=== PATIENT | male | born 1990 | race Two or more races ===

== ENCOUNTER 2022-01-18 13:36 | Emergency (ER) | payer MEDICAID, OTHER ==
[~2022-01-18] VITALS: Ht 175.3 cm; Wt 90.7 kg
[2022-01-18 13:40] VITALS: BP 150/91
[2022-01-18] MEDS ORDERED: NAPR500T31 PO (15:08)
[2022-01-18] MEDS ORDERED: CEPH500C PO (15:08)
== END 2022-01-18 15:14 | disposition home or self-care (01) ==
LOC: ER 13:36
DX: S63.91XA Sprain of unspecified part of right wrist and hand, initial encounter (principal); W01.0XXA Fall on same level from slipping, tripping and stumbling without subsequent striking against object, initial encounter; Y93.89 Activity, other specified; Y92.89 Other specified places as the place of occurrence of the external cause; Y99.8 Other external cause status
CPT/HCPCS: 73130

== ENCOUNTER 2024-02-26 21:21 | Emergency (ER) | payer MEDICAID ==
[~2024-02-26] VITALS: Ht 172.7 cm; Wt 107.6 kg
[~2024-02-26 21:21] MED LIST: CEPH500C PO; IBUP-1456 PO; NAPR-746 PO
[2024-02-26 22:19] LABS: Basophils # (auto) 0.1 10 ^3/uL (0-0.2); Basophils % (auto) 0.7 % (0.0-2.0); Eosinophils # (auto) 0.4 10 ^3/uL (0-0.8); Eosinophils % (auto) 5.1 % (0.0-7.0); Hematocrit 40.4 % (41.0-53.0); Hemoglobin 13.4 g/dL (13.5-17.5); Lymphocytes # (auto) 1.7 10 ^3/uL (0.4-5.4); Lymphocytes % (auto) 21.6 % (10.0-50.0); Mean Corpuscular Hemoglobin 28.5 pg (28.0-32.0); Mean Corpuscular Hgb Conc. 33.2 g/dL (32.0-36.0); Monocytes # (auto) 0.6 10 ^3/uL (0-1.3); Monocytes % (auto) 7.1 % (0.0-12.0); Neutrophils # (auto) 5.1 10 ^3/uL (1.6-8.6); Neutrophils % (auto) 65.5 % (37.0-80.0); Red Blood Cells 4.69 10^6/uL (4.5-5.90); Red Cell Distribution Width 16.5 % (11.8-14.3); White Blood Cell 7.8 10^3/uL (4.4-10.8)
[2024-02-26 22:42] LABS: Alanine Aminotransferase 170 U/L (7-40); Albumin 5.2 g/dL (3.2-4.8); Alkaline Phosphatase 63 U/L (46-116); Anion Gap 12 (5-15); Aspartate Aminotransferase 109 U/L (13-40); Bilirubin, Total 0.6 mg/dL (0.2-1.0); Blood Urea Nitrogen 15 mg/dL (9-23); Calcium 10.2 mg/dL (8.7-10.4); Carbon Dioxide 19 mmol/L (20-30); Chloride 107 mmol/L (98-107); Glucose 89 mg/dL (74-106); Lipase 37 U/L (12-53); Potassium 3.7 mmol/L (3.5-5.1); Sodium 138 mmol/L (136-145); Total Protein 8.4 g/dL (5.7-8.2)
[2024-02-26 22:56] LABS: Urine Bacteria None Seen /hpf (None Seen)
[2024-02-26 23:06] LABS: Urine Blood 1+ /uL (Negative); Urine Clarity Clear (Clear); Urine Color Yellow (Yellow); Urine Mucus FEW (None Seen); Urine Protein, UAD 1+ (Negative); Urine Specific Gravity 1.028 (1.001-1.035); Urine Urobilinogen Normal (Negative); Urine WBC 1 /hpf (0 - 3)
[2024-02-27] MEDS: KETOROLAC TROMETH 60MG/2ML VIAL IM ONE (00:42)
[2024-02-27 00:46] VITALS: BP 97/150; PULSE 76; RESP 18; TEMP 98.4; O2SAT 95
== END 2024-02-27 00:48 | disposition home or self-care (01) ==
LOC: ER 21:21
DX: I88.0 Nonspecific mesenteric lymphadenitis (principal); I10 Essential (primary) hypertension; Z79.899 Other long term (current) drug therapy
CPT/HCPCS: 36415; 74176; 80053; 81001; 83690; 85025; 96372; 99285; J1885

== ENCOUNTER 2024-12-04 08:35 | Emergency (ER) | payer MEDICAID ==
[~2024-12-04] VITALS: Ht 177.8 cm; Wt 109.6 kg
[2024-12-04 08:58] VITALS: BP 137/99; PULSE 80; RESP 16; TEMP 97.5; O2SAT 97
--- NOTE | 2024-12-04 09:14 | ED.PDOC ---
GI ASSESSMENT HPI Comments A 33 YEAR OLD MALE PRESENTS TO THE ED WITH COMPLAINT OF CONSTIPATION FOR 2X DAYS, WITH MILD EPIGASTRIC DISCOMFORT AND RECTAL PAIN, AND ADDITIONAL ONSET OF MILD BLOOD IN STOOL, LAST NIGHT AND THIS MORNING. PATIENT DENIES FEVER, CHILLS, SHORTNESS OF BREATH, CHEST PAIN, ABDOMINAL PAIN, NAUSEA, VOMITING, HEADACHE, OR OTHER COMPLAINTS. NO OTHER SYMPTOMS OR MODIFYING FACTORS AT THIS TIME. PT IS ALERT, ORIENTATION X4 WITH NORMAL GAIT. Chief Complaint: RECTAL PAIN Time Seen by MD: 09:00 Primary Care Provider: NONE Reviewed Notes: Nurses Notes, Medications, Allergies Allergies: Coded Allergies: No Known Drug Allergy (Verified Allergy, Unknown, 07/01/23) Home Meds Active Scripts Hydrocortisone Base (Anusol-Hc) 2.5 % Cre, 1 APPLIC TOP BID, #30 GRAMS Prov:LASHAUN WHIPPLE 12/04/24 Docusate Sodium (Colace) 100 Mg Cap, 1 CAP PO BID, #30 CAP Prov:LASHAUN WHIPPLE 12/04/24 Ibuprofen (Ibuprofen) 800 Mg Tab, 1 TAB PO TID, #30 TAB Prov:LASHAUN WHIPPLE 03/20/23 Naproxen (Naproxen) 500 Mg Tab, 500 MG PO BID, #30 TAB Prov:LASHAUN WHIPPLE 01/18/22 Cephalexin Monohydrate (Cephalexin) 500 Mg Cap, 500 MG PO QID, #32 CAP Prov:LASHAUN WHIPPLE 01/18/22 Information Source: Patient Mode of Arrival: Ambulatory Timing: Days Duration: Since onset Prehospital treatment: None Quality: Other (epigastric ) Vomitus: None Stool: Blood Streaked, Minimal Severity: Mild, Moderate Recent: None Recent Hx of: Other (see HPI) Pain Location: Epigastric Modifying Factors: Nothing Associated sign and symptoms: Constipation, Abdominal Pain, Blood in Stool, Other (RECTAL PAIN ) Past Medical History PAST MEDICAL HISTORY: HTN, Liver (FATTY LIVER ), Thyroid Past Medical History (Other): OBESITY Surgical History: Denies all surgeries Family History Family History: Reviewed,noncontributory to illness Social History Smoker: Non-Smoker Alcohol: Occasionally Drugs: Denies Drug Use Lives In: Home Constitutional: denies: chills, diaphoresis, fatigue, fever, malaise, sweats, weakness, others EENTM: denies: blurred vision, double vision, ear bleeding, ear discharge, ear drainage, ear pain, ear ringing, eye pain, eye redness, hearing loss, mouth pain, mouth swelling, nasal discharge, nose bleeding, nose congestion, nose pain, photophobia, tearing, throat pain, throat swelling, voice changes, others Respiratory: denies: cough, hemoptysis, orthopnea, SOB at rest, shortness of breath, SOB with excertion, stridor, wheezing, others Cardiovascular: denies: chest pain, dizzy spells, diaphoresis, Dyspnea on exertion, edema, irregular heart beat, left arm pain, lightheadedness, palpitations, PND, syncope, others Gastrointestinal: reports: blood streaked bowels, constipated, rectal pain; denies: abdomen distended, diarrhea, dysphagia, difficulty swallowing, hematemesis, melena, nausea, poor appetite, poor fluid intake, rectal bleeding, vomiting, others Genitourinary: reports: pain (RECTAL ); denies: burning, dysuria, flank pain, frequency, hematuria, incontinence, penile discharge, penile sore, testicle pain, testicle swelling, urgency, others Neurological: denies: dizziness, fainting, headache, left sided numbness, left sided weakness, numbness, paresthesia, pre-existing deficit, right sided numbness, right sided weakness, seizure, speech problems, tingling, tremors, weakness, others Musculoskeletal: denies: back pain, gout, joint pain, joint swelling, muscle pain, muscle stiffness, neck pain, others Integumetry: denies: bruises, change in color, change in hair/nails, dryness, laceration, lesions, lumps, rash, wounds, others Allergic/Immunocompromised: denies: Difficulty Healing, Frequent Infections, Hives, Itching, others Hematologic/Lymphatic: denies: anemia, blood clots, easy bleeding, easy bruising, swollen glands, others Endocrine: denies: excessive hunger, excessive sweating, excessive thirst, excessive urination, flushing, intolerance to cold, intolerance to heat, unexplained weight gain, unexplained weight loss, others Psychiatric: denies: anxiety, bipolar disorder, depression, hopeless, panic disorder, schizophrenia, sleepless, suicidal, others All Other Systems: Reviewed and Negative (Comprehensive review of systems are negative unless otherwise stated in HPI or above ) Physical Exam General Appearance: No Apparent Distress, Obese HEENT: Normal ENT Inspection, PERRL/EOMI, Pharynx Normal, TMs Normal Neck: Full Range of Motion, Non-Tender, Normal, Normal Inspection Respiratory: Chest Non-Tender, Lungs Clear, No Accessory Muscle Use, No Respiratory Distress, Normal Breath Sounds Cardiovascular: No Edema, No JVD, No Murmur, No Gallop, Normal Peripheral Pulses, Regular Rate/Rhythm Breast Exam: Deferred Gastrointestinal: No Organomegaly, No Pulsatile Mass, Normal Bowel Sounds, Soft, Tenderness (MILD TENDERNESS EPIGASTRIC, NO GUARDING AND REBOUND TENDERNESS. ) Genitalia: Deferred Pelvic: Deferred Rectal: Heme negative stool, Normal rectal tone, Tenderness (RECTAL REGION WITH A FISSURE, NO RECTAL BLEEDING AND BLOOD CLOTS. ) Extremities: No calf tenderness, Normal capillary refill, Normal inspection, Normal range of motion, Non-tender, No pedal edema Musculoskeletal : Apperance: Normal Neurologic: Alert, licensed pesticide applicator II-XII nml as Tested, No Motor Deficits, Normal Affect, Normal Mood, No Sensory Deficits Cerebellar Function: Normal Reflexes: Normal Skin: Dry, Normal Color, Warm Peripheral Pulses: 2+ carotid (R), 2+ carotid (L) Lymphatic: No Adenopathy Was a procedure done? Was a procedure done?: No GI differential Dx Differential Diagnosis: Constipation, Gastritis/PUD, Gastroenteritis, Inflammatory BD, Viral, Other (LOWER GI BLEED, HEMORRHOIDS, FISSURE) X-Ray, Labs, Meds, VS Vital Signs Date Time Temp Pulse Resp B/P (MAP) Pulse Ox O2 Delivery O2 Flow Rate FiO2 12/04/24 08:58 97.5 80 16 137/99 (112) 97 97.5 12/04/24 08:58 80 16 97 Room Air 12/04/24 08:45 97.5 80 16 137/99 (112) 97 97.5 Lab Test 12/04/24 09:07 Range/Units White Blood Count 6.0 4.4-10.8 10^3/uL Red Blood Count 4.99 4.5-5.90 10^6/uL Hemoglobin 15.1 13.5-17.5 g/dL Hematocrit 45.9 41.0-53.0 % Mean Corpuscular Volume 92.0 80.0-100.0 fL Mean Corpuscular Hemoglobin 30.3 28.0-32.0 pg Mean Corpuscular Hemoglobin Concent 32.9 32.0-36.0 g/dL Red Cell Distribution Width 17.7 H 11.8-14.3 % Platelet Count 281 140-450 10^3/uL Mean Platelet Volume 7.7 6.9-10.8 fL Neutrophils (%) (Auto) 63.3 37.0-80.0 % Lymphocytes (%) (Auto) 22.9 10.0-50.0 % Monocytes (%) (Auto) 8.7 0.0-12.0 % Eosinophils (%) (Auto) 4.6 0.0-7.0 % Basophils (%) (Auto) 0.5 0.0-2.0 % Neutrophils # (Auto) 3.8 1.6-8.6 10 ^3/uL Lymphocytes # (Auto) 1.4 0.4-5.4 10 ^3/uL Monocytes # (Auto) 0.5 0-1.3 10 ^3/uL Eosinophils # (Auto) 0.3 0-0.8 10 ^3/uL Basophils # (Auto) 0 0-0.2 10 ^3/uL Nucleated Red Blood Cells 0.0 % Stool Occult Blood Sample #3 Positive Negative Sodium Level 138 136-145 mmol/L Potassium Level 4.0 3.5-5.1 mmol/L Chloride Level 104 98-107 mmol/L Carbon Dioxide Level 22 20-31 mmol/L Anion Gap 12 5-15 Blood Urea Nitrogen 12 9-23 mg/dL Creatinine 1.11 0.700-1.30 mg/dL Glomerular Filtration Rate Calc 91 >90 mL/min BUN/Creatinine Ratio 10.8 10.0-20.0 Serum Glucose 112 H 74-106 mg/dL Calcium Level 10.4 8.7-10.4 mg/dL Total Bilirubin 1.0 0.2-1.0 mg/dL Aspartate Amino Transferase (AST) 123 H 13-40 U/L Alanine Aminotransferase (ALT) 128 H 7-40 U/L Alkaline Phosphatase 85 46-116 U/L Total Protein 8.5 H 5.7-8.2 g/dL Albumin 5.5 H 3.2-4.8 g/dL Lipase Pending Plasma/Serum Blood Alcohol < 3.0 <10 mg/dL [facility] [id number] [place] [address] Ph: [phone] DIAGNOSTIC IMAGING Diagnostic Imaging Report : [id number] Signed PATIENT: LIZBETH EVERETT ACCT: [id number] UNIT: [id number] : 1990 LOC: ER ROOM / BED: / AGE / SEX: 33 / M ADM STATUS: REG ER SERVICE 8 ORDERING PHYSICIAN: LASHAUN WHIPPLE PROCEDURE(s): KUB - KUB ABDOMEN SINGLE VIEW REASON: CONSTIPATION ORDER NUMBER(s): [id number], ACCESSION NUMBER(s): [id number] EXAM: XY KUB ABDOMEN SINGLE VIEW HISTORY: CONSTIPATION COMPARISON: CT scan of the abdomen and pelvis dated 02/26/2024 TECHNIQUE: Supine AP views of the abdomen were performed. FINDINGS: No abnormal bowel dilatation. Gas is present in the distal colon. There is fecal retention in the ascending and transverse colon. No abnormal calcifications are identified overlying the urinary tract. The liver is enlarged. IMPRESSION: 1. No evidence of bowel obstruction. 2. Fecal retention in the proximal to mid colon which may indicate constipation. 3. Hepatomegaly. ATED BY: MILLI BARKSDALE MD DICTATED DATE/TIME: 12/04/24943 SIGNED BY: MILLI BARKSDALE MD SIGNED DATE/TIME: 12/04/24943 CC: X-Ray, Labs, Meds, VS Comment EXTERNAL MEDICAL RECORDS REVIEWED: February 26, 2024 Mesenteric Adenitis INDEPENDENT HISTORIANS: [NONE] SOCIAL DETERMINANTS OF HEALTH: Fatty liver, HTN, and TSH LABS ORDERED: BLOOD ALCOHOL. STOOL OCCULT BLOOD, LIPASE, UA, CMP, CBC, KUB A BDOMEN REVIEWED AND INTERPRETED RESULTS: MILD ELEVATED LIVER ENZYMES. UNABLE TO OBTAIN LIPASE REPORT, DUE TO LAB STATING ON MACHINERY BEING DOWN AT THIS TIME AND PATIENT BEING UNABLE TO WAIT ANY LONGER. IMAGING ORDERED: KUB ABDOMEN TREATMENTS ORDERED: NONE PROCEDURES PERFORMED: NONE CRITICAL CARE TIME: NONE I HAVE DISCUSSED THE PATIENT WITH THE ATTENDING PHYSICIAN DR. OLMSTEAD AND HE AGREES WITH THE PATIENT'S PLAN OF CARE AND DISPOSITION. BASED ON HISTORY OF PRESENT ILLNESS, AND PHYSICAL EXAM, PATIENT WILL BE DISCHARGED HOME. DISCUSSED PLAN FOR DISCHARGE HOME WITH RX STOOL SOFTENER AND RECTAL PAIN CREAM MEDICATION. MEDICATION WARNINGS GIVEN. SHARED DECISION MAKING: DISCUSSED WITH PATIENT THAT THEIR WORKUP WAS NORMAL. PATIENT INSTRUCTED TO FOLLOW UP WITH PRIMARY CARE PROVIDER IN 1-2 DAYS FOR RE- EVALUATION OF SYMPTOMS. PATIENT VERBALIZES UNDERSTANDING TO RETURN TO ED FOR NEW OR WORSENING SYMPTOMS OR IF FOLLOW UP WITH PCP CANNOT BE OBTAINED. PATIENT FEELS COMFORTABLE GOING HOME AT THIS TIME. ALL QUESTIONS ADDRESSED AT TIME OF DISCHARGE. Time of 1ST Reevaluation: 10:17 (patient denies any current pain ) Reevaluation 1ST: Improved Time of 2ND Reevaluation: 10:40 Reevaluation 2ND: Improved Patient Education/Counseling: Diagnosis, Treatment, Need For Follow Up Family Education/Counseling: Diagnosis, Treatment, No Family Present Medical Screening: No EMC Exist At This Time Departure 1 Departure Time of Disposition: 10:40 Impression: Primary Impression: Rectal fissure Additional Impressions: Constipation Qualified Codes: K59.00 - Constipation, unspecified Fatty liver Disposition: HOME / SELF CARE / HOMELESS Condition: Stable Additional Instructions: FOLLOW-UP WITH PCP IN 1 TO 2 DAYS. TAKE MEDICATIONS PRESCRIBED. RETURN TO ED FOR ANY NEW OR WORSENING SYMPTOMS. e-Prescriptions Hydrocortisone Base (Anusol-Hc) 2.5 % Cre 1 APPLIC TOP BID, #30 GRAMS Prov: LASHAUN WHIPPLE 12/04/24 Docusate Sodium (Colace) 100 Mg Cap 1 CAP PO BID, #30 CAP Prov: LASHAUN WHIPPLE 12/04/24 Discharged With: Self Critical Care Note Critical Care Time?: No Stability Stability form required: No Heart Score Heart Score: Heart Score Response (Comments) Value History N/A 0 EKG N/A 0 Age N/A 0 Risk Factors N/A 0 Troponin N/A 0 Total 0 I personally scribed for LASHAUN WHIPPLE ([email or web address]) on 12/04/24 at 09:14. Electronically submitted by Sedrick Etienne ([email or web address]). I personally scribed for LASHAUN WHIPPLE ([email or web address]) on 12/04/24 at 09:23. Electronically submitted by Sedrick Etienne ([email or web address]). I personally scribed for LASHAUN WHIPPLE ([email or web address]) on 12/04/24 at 09:49. Electronically submitted by Sedrick Etienne ([email or web address]). I personally scribed for LASHAUN WHIPPLE ([email or web address]) on 12/04/24 at 09:57. Electronically submitted by Sedrick Etienne ([email or web address]). I personally scribed for LASHAUN WHIPPLE ([email or web address]) on 12/04/24 at 10:17. Electronically submitted by Sedrick Etienne ([email or web address]). I personally scribed for LASHAUN WHIPPLE ([email or web address]) on 12/04/24 at 10:33. Electronically submitted by Sedrick Etienne ([email or web address]). LASHAUN WHIPPLE Dec 04, 2024 09:14
[2024-12-04 09:26] LABS: Basophils # (auto) 0 10 ^3/uL (0-0.2); Basophils % (auto) 0.5 % (0.0-2.0); Eosinophils # (auto) 0.3 10 ^3/uL (0-0.8); Eosinophils % (auto) 4.6 % (0.0-7.0); Hematocrit 45.9 % (41.0-53.0); Hemoglobin 15.1 g/dL (13.5-17.5); Lymphocytes # (auto) 1.4 10 ^3/uL (0.4-5.4); Lymphocytes % (auto) 22.9 % (10.0-50.0); Mean Corpuscular Hemoglobin 30.3 pg (28.0-32.0); Mean Corpuscular Hgb Conc. 32.9 g/dL (32.0-36.0); Monocytes # (auto) 0.5 10 ^3/uL (0-1.3); Monocytes % (auto) 8.7 % (0.0-12.0); Neutrophils # (auto) 3.8 10 ^3/uL (1.6-8.6); Neutrophils % (auto) 63.3 % (37.0-80.0); Platelet Count (auto) 281 10^3/uL (140-450); Red Blood Cells 4.99 10^6/uL (4.5-5.90); Red Cell Distribution Width 17.7 % (11.8-14.3)
--- NOTE | 2024-12-04 09:46 | DVH ---
EXAM: XY KUB ABDOMEN SINGLE VIEW HISTORY: CONSTIPATION COMPARISON: CT scan of the abdomen and pelvis dated 02/26/2024 TECHNIQUE: Supine AP views of the abdomen were performed. FINDINGS: No abnormal bowel dilatation. Gas is present in the distal colon. There is fecal retention in the as cending and transverse colon. No abnormal calcifications are identified overlying the urinary tract. The liver is enlarged. IMPRESSION: 1. No evidence of bowel obstruction. 2. Fecal retention in the proximal to mid colon which may indicate constipation. 3. Hepatomegaly.
[2024-12-04 10:00] LABS: Alkaline Phosphatase 85 U/L (46-116); Anion Gap 12 (5-15); BUN/Creatinine Ratio 10.8 (10.0-20.0); Blood Urea Nitrogen 12 mg/dL (9-23); Calcium 10.4 mg/dL (8.7-10.4); Carbon Dioxide 22 mmol/L (20-31); Chloride 104 mmol/L (98-107); Sodium 138 mmol/L (136-145)
[2024-12-04 10:01] LABS: Aspartate Aminotransferase 123 U/L (13-40); Glucose 112 mg/dL (74-106)
[2024-12-04 10:02] LABS: Alanine Aminotransferase 128 U/L (7-40); Albumin 5.5 g/dL (3.2-4.8); Total Protein 8.5 g/dL (5.7-8.2)
[2024-12-04] MEDS ORDERED: DOCU-94 PO (10:33)
[2024-12-04] MEDS ORDERED: HYDR2.5C39 TOP (10:33)
--- NOTE | 2024-12-04 11:00 | DVH ---
US GALLBLADDER HISTORY: EPIGASTRIC PAIN WITH ELEVATED LIVER ENZYMES COMPARISON: None TECHNIQUE: Transverse and longitudinal grayscale and color sonographic images were obtained of the ab domen. FINDINGS: Liver: - Size: 21.1 cm - Echogenicity: Hyperechoic - Surface Contour: Smooth - Liver Lesion(s): None - Portal Vein: Patent and forward flowing. - Bile Ducts: Normal. The common bile duct measures 3.6 mm. Gallbladder: Normal. The sonographic chester sign is negative. Pancreas: Portions not obscured by bowel gas are normal. Kidneys: - Right kidney size: 10.9 cm. There is no hydronephrosis, renal calculi, or mass lesion. Aorta and Inferior Vena Cava: The visualized portions of the abdominal aorta and intrahepatic vena ca va are normal. Other: None IMPRESSION: Hepatomegaly with hepatic steatosis.
[2024-12-04 14:42] LABS: Lipase 39 U/L (12-53)
== END 2024-12-04 10:38 | disposition home or self-care (01) ==
LOC: ER 08:35
DX: K60.2 Anal fissure, unspecified (principal); K59.00 Constipation, unspecified; K76.0 Fatty (change of) liver, not elsewhere classified; E66.9 Obesity, unspecified; Z79.1 Long term (current) use of non-steroidal anti-inflammatories (NSAID); Z79.899 Other long term (current) drug therapy
CPT/HCPCS: 36415; 74018; 76705; 80053; 80320; 82270; 82272; 83690; 85025